=== PATIENT | male | born 1960 | race Caucasian/White ===

== ENCOUNTER 2021-10-14 14:13 | Emergency (ER) | payer OTHER ==
[~2021-10-14 14:13] MED LIST: AMOXICILLIN500 M2 PO; ASPIRIN EC81 M1 PO; ASPIRIN EC81 MG PO; AUGMENTIN 875-1 EACH PO; B COMPLEX WITH1 EACH PO; BUSPIRONE HCL15 M1 PO; CHLORHEXIDINE118 M1 PO; DIAZEPAM 5MG TAB5 MG PO; LISINOPRIL 10MG10 MG PO; NAPROXEN500 MG PO; NORCO 5-325 TA1 EACH PO; OMEPRAZOLE 20MG20 MG PO; ONDANSETRON HCL4 MG PO; PHENERGAN25 M1 PO; PROPRANOLOL HCL10 MG PO; SUCRALFATE1 GM/10 ML PO; VENTOLIN HFA IN18 GM INH; VICODIN 10/3251 EACH PO
[2021-10-14 16:31] LABS: BASOPHIL 0.4 % (0-2); EOSINOPHIL 1.2 % (0-5); HCT 47.1 % (42.0-52.0); HGB 15.4 g/dl (13.2-18.0); LYMPHOCYTE 22.9 % (15-48); MCH 30.9 pg (25.0-31.0); MCHC 32.7 g/dL (32.0-36.0); MCV 94.6 fL (78.0-100.0); MONOCYTE 12.4 % (0-12); MPV 9.5 fL (6.0-9.5); NEUTROPHIL 62.9 % (41-80); NRBC 0; PLT 204 K/uL (150-400); RBC 4.98 M/uL (4.70-6.00); RDW 13.2 % (11.5-14.0); WBC 8.1 K/uL (4.0-10.5)
[2021-10-14 16:51] LABS: ALBUMIN 3.7 g/dL (3.4-5.0); BILIRUBIN - TOTAL 0.4 mg/dL (0.2-1.0); CREATININE 0.8 mg/dL (0.67-1.17); TOTAL PROTEIN 7.7 g/dL (6.4-8.2)
[2021-10-14 17:39] LABS: BILIRUBIN NEGATIVE (NEGATIVE); BLOOD 2+ Ery/uL (NEGATIVE); CLARITY CLEAR (CLEAR); COLOR YELLOW (YELLOW); GLUCOSE (U) NORMAL (NORMAL); LEUKOCYTES NEGATIVE Leu/uL (NEGATIVE); NITRITE NEGATIVE (NEGATIVE); PROTEIN NEGATIVE (NEGATIVE); SPECIFIC GRAVITY >=1.030 (1.001-1.030); UROBILINOGEN 0.2 mg/dL (0.2-1.0); pH 5.5 (5.0-9.0)
[2021-10-14 18:46] LABS: BACTERIA TRACE; MUCOUS LARGE; URINARY RBC RARE; URINARY WBC RARE
[2021-10-14] MEDS ORDERED: CIPRO500 MG PO (18:59)
[2021-10-14] MEDS ORDERED: METRONIDAZOLE500 MG PO (18:59)
[2021-10-14] MEDS ORDERED: BENTYL10 MG PO (19:00)
== END 2021-10-14 19:36 | disposition home or self-care (01) ==
LOC: FER 14:13
PROVIDERS: Emergency Medicine
DX: K52.9 Noninfective gastroenteritis and colitis, unspecified (principal); J44.9 Chronic obstructive pulmonary disease, unspecified
CPT/HCPCS: 36415; 80053; 81001; 82150; 83690; 85025; J7030; Q9967

== ENCOUNTER 2022-01-30 15:09 | Emergency (ER) | payer OTHER ==
[~2022-01-30 15:09] MED LIST changes: +BENTYL10 MG PO; +CIPRO500 MG PO; +METRONIDAZOLE500 MG PO
[2022-01-30] MEDS ORDERED: AMOX TR-K CLV1 EAC4 PO ×2 (15:39→16:00)
== END 2022-01-30 16:19 | disposition home or self-care (01) ==
LOC: FER 15:09
DX: C06.9 Malignant neoplasm of mouth, unspecified (principal); F17.200 Nicotine dependence, unspecified, uncomplicated
CPT/HCPCS: 99282